=== PATIENT | female | born 1990 | race American Indian/Alaskan Native ===

== ENCOUNTER 2017-03-03 16:31 | Emergency (ER) | payer OTHER ==
[2017-03-03 16:54] VITALS: O2SAT 99
[2017-03-03] MEDS ORDERED: Sodium Chloride 0.9% 1,000 ML IV ONE (17:33)
--- NOTE | 2017-03-03 17:40 | C.PDOC ---
History Of Present Illness 26 y/o female, with PMHx of morbid obesity, presents to ED for evaluation of crampy abdominal pain for the last 2 weeks. Pt states that she was seen at another institution, and was told she was constipated. Notes that she was given Laxatives which caused her symptoms to worsen. Otherwise, pt denies any n/v/d, fever, or any other complaints at this time. Time Seen by Provider: 03/03/17 17:23 Chief Complaint (Nursing): Abdominal Pain History Per: Patient History/Exam Limitations: no limitations Onset/Duration Of Symptoms: Days (2 weeks) Current Symptoms Are (Timing): Still Present Location Of Pain/Discomfort: Diffuse Radiation Of Pain To:: None Quality Of Discomfort: Cramping Associated Symptoms: Constipation. denies: Nausea, Vomiting, Loss Of Appetite, Back Pain, Chest Pain, Urinary Symptoms Exacerbating Factors: None Alleviating Factors: None Recent travel outside of the [place]: No Additional History Per: Patient Abnormal Vaginal Bleeding: No Past Medical History Reviewed: Historical Data, Nursing Documentation, Vital Signs Vital Signs: Last Vital Signs Temp 99.0 F 03/03/17 21:44 Pulse 82 03/03/17 23:01 Resp 18 03/03/17 23:01 BP 105/71 03/03/17 21:44 Pulse Ox 99 03/03/17 23:01 - Medical History PMH: No Chronic Diseases Surgical History: No Surg Hx Family History: States: No Known Family Hx - Social History Hx Alcohol Use: No Hx Substance Use: No - Immunization History Hx Tetanus Toxoid Vaccination: No Hx Influenza Vaccination: No Hx Pneumococcal Vaccination: No Review Of Systems Except As Marked, All Systems Reviewed And Found Negative. Constitutional: Negative for: Fever, Chills Cardiovascular: Negative for: Chest Pain, Palpitations Respiratory: Negative for: Cough, Shortness of Breath Gastrointestinal: Positive for: Abdominal Pain, Constipation. Negative for: Nausea, Vomiting, Diarrhea Genitourinary: Negative for: Dysuria, Frequency, Hematuria, Vaginal Discharge Musculoskeletal: Negative for: Back Pain Neurological: Negative for: Headache, Dizziness Physical Exam - Physical Exam Appears: Non-toxic, No Acute Distress Skin: Normal Color, Warm, Dry Head: Atraumatic, Normacephalic Eye(s): bilateral: Normal Inspection, EOMI Oral Mucosa: Moist Neck: Normal ROM, Supple Chest: Symmetrical Cardiovascular: Rhythm Regular, No Murmur Respiratory: No Accessory Muscle Use, No Rales, No Rhonchi, No Wheezing Gastrointestinal/Abdominal: Soft, Tenderness (llq), No Distention, No Guarding, No Rebound Back: No CVA Tenderness Extremity: Normal ROM, No Deformity Extremity: Bilateral: Atraumatic Neurological/Psych: Oriented x3, Normal Speech ED Course And Treatment - Laboratory Results Result Diagrams: 03/03/17 18:25 03/03/17 18:25 O2 Sat by Pulse Oximetry: 99 (on RA) Pulse Ox Interpretation: Normal Medical Decision Making Medical Decision Making: r/o colitis, uti, diverticultis, ovarian cyst - labs imagign pending 1000: pt reassesed: ct shows : MPRESSION: - Findings suspicious for marked acute diverticulitis of the sigmoid colon. There is no evidence of free air or abscess formation, however, there is a significant soft tissue component to the infection, suspicious for phlegmonous infection. - Mild thickening of the bladder wall on the left, most likely reactive, related to the nearby sigmoid diverticulitis, but recommend correlation with urinalysis results to rule out acute cystitis. - See above for remaining findings. discussed results in detail with pt. requeted pt be observed in hospital however pt refuses. states she needs to take care of her daughter. pt does state pain and symptoms are improved. advise outpt f/u and return precautions. Disposition - Disposition Referrals: Eamon Andrews MD [Staff Provider] - Disposition: HOME/ ROUTINE Disposition Time: 22:03 Condition: STABLE Additional Instructions: please follow up with your doctor/specialist. return to er with worsening symptoms or concerns. you are declining observation in the hospital, however you are able to return to er at any time with any concerns Prescriptions: Cefpodoxime [Vantin] 100 mg PO BID #20 tab metroNIDAZOLE [Flagyl] 500 mg PO TID #30 tab Instructions: Diverticulitis (ED) Forms: [facility] (Portuguese), Work Excuse - Clinical Impression Clinical Impression: Diverticulitis - Scribe Statement The provider has reviewed the documentation as recorded by the Raffiibe Pardeep Lozoya All medical record entries made by the Scribe were at my direction and personally dictated by me. I have reviewed the chart and agree that the record accurately reflects my personal performance of the history, physical exam, medical decision making, and the department course for this patient. I have also personally directed, reviewed, and agree with the discharge instructions and disposition.
[2017-03-03] MEDS ORDERED: Sodium Chloride 0.9% 1,000 ML ONE (17:56)
[2017-03-03 18:39] LABS: BASO # 0.1 K/uL (0.0-0.2); BASO % 0.5 % (0.0-2.0); EOS # 0.1 K/uL (0.0-0.7); EOS % 0.4 % (0.0-4.0); LYMPH # 2.3 K/uL (1.0-4.3); LYMPH % 14.8 % (20.0-40.0); MEAN CELL VOLUME 79.5 fL (81.0-99.0); MEAN CORPUSCULAR HEMOGLOBIN 25.7 pg (27.0-31.0); MEAN CORPUSCULAR HGB CONC 32.3 g/dL (33.0-37.0); MONO # 1.5 K/uL (0.0-0.8); MONO % 9.4 % (0.0-10.0); RED CELL DISTRIBUTION WIDTH 15.8 % (11.5-14.5); WHITE BLOOD COUNT 15.9 K/uL (4.8-10.8)
[2017-03-03 18:46] LABS: CHLORIDE 106 mmol/L (98-107); SODIUM 138 mmol/L (132-148)
[2017-03-03 18:47] LABS: POTASSIUM 3.7 mmol/L (3.6-5.2)
[2017-03-03 18:48] LABS: GFR AFRICAN-AMERICAN > 60
[2017-03-03 18:49] LABS: ALB/GLOB RATIO 1.1 (1.0-2.1); ALKALINE PHOSPHATASE 174 U/L (38-126); ALT/SGPT 23 U/L (9-52); AST/SGOT 20 U/L (14-36); BILIRUBIN,TOTAL 0.5 mg/dL (0.2-1.3); BLOOD UREA NITROGEN 10 mg/dL (7-17); CALCIUM 9.1 mg/dl (8.6-10.4); CARBON DIOXIDE 23 mmol/L (22-30); GLUCOSE,RANDOM 94 mg/dL (65-105)
[2017-03-03 18:52] LABS: RBC URINE 177 /hpf (0-3); URINE BACTERIA FEW (<OCC); URINE BILIRUBIN NEGATIVE (NEGATIVE); URINE BLOOD 3+ (NEGATIVE); URINE GLUCOSE (UA) NORMAL (Normal); URINE KETONE 1+ mg/dL (NEGATIVE); URINE LEUKOCYTE ESTERASE 1+ Leu/uL (Negative); URINE PROTEIN 1+ mg/dL (NEGATIVE); URINE UROBILINOGEN NORMAL mg/dL (0.2-1.0); WBC URINE 29 /hpf (0-5)
[2017-03-03 18:53] LABS: URINE COLOR YELLOW (YELLOW)
[2017-03-03 18:57] LABS: INR 1.5
[2017-03-03] MEDS ORDERED: Iodixanol 320 MG/ML 100 ML BOTTLE IV ONE (19:28)
[2017-03-03] MEDS ORDERED: cefTRIAXone IV 1 gm in Dextros 50 ML IVPB ONE (19:28)
--- NOTE | 2017-03-03 20:21 | US ---
EXAM: US Pelvis, Transvaginal EXAM DATE/TIME: 03/03/2017 5:33 PM CLINICAL HISTORY: 26 years old, female; Pain; Pelvic pain; Additional info: Left adenxal pain TECHNIQUE: Real-time transvaginal pelvic ultrasound (complete) with image documentation. Transvaginal imaging was used for better evaluation of the endometrium and adnexa. COMPARISON: No relevant prior studies available. FINDINGS: Uterus: Within normal limits in appearance. Measures 8 x 3.9 x 4.7 cm. Endometrial stripe does not appear abnormally thickened, measuring 7 mm. No fibroids seen. Cervix appears closed. Right ovary: Somewhat poorly seen due to gas. Grossly normal in appearance. Measures 2.6 x 2.0 x 2.0 cm. Flow seen in the right ovary on color and Doppler imaging, with no evidence of torsion. Left ovary: Within normal limits in appearance, containing multiple small follicles. Measures 3.3 x 1.7 x 2.9 cm. Flow seen in the left ovary on color and Doppler imaging, with no evidence of torsion. Free fluid: A small amount of free fluid is seen in the cul-de-sac, and in the right adnexal region, abutting the right ovary. IMPRESSION: Small amount of free fluid in the cul-de-sac and abutting the right ovary. This may be physiologic in nature. Otherwise negative exam. No evidence of ovarian torsion or masses. See above for remaining findings.
[2017-03-03 21:45] VITALS: BP 105/71; RESP 18; TEMP 99
--- NOTE | 2017-03-03 21:57 | CT ---
EXAM: CT Abdomen and Pelvis With Intravenous Contrast EXAM DATE/TIME: 03/03/2017 7:18 PM CLINICAL HISTORY: 26 years old, female; Pain; Abdominal pain; Localized; Left lower quadrant (llq); Additional info: Llq pain TECHNIQUE: Axial computed tomography images of the abdomen and pelvis with intravenous contrast. All CT scans at this facility use one or more dose reduction techniques, viz.: automated exposure control; ma/kV adjustment per patient size (including targeted exams where dose is matched to indication; i.e. head); or iterative reconstruction technique. Coronal and sagittal reformatted images were created and reviewed. CONTRAST: 100 mL of visipaque 320 administered intravenously. COMPARISON: Recent pelvic ultrasound. FINDINGS: LIMITATIONS: Artifact related to the patient's body habitus. LOWER THORAX: No infiltrate seen in the lung bases. ABDOMEN: LIVER: No acute abnormality of the liver identified. GALLBLADDER AND BILE DUCTS: No CT evidence of acute cholecystitis. No evidence of significant biliary ductal dilatation. PANCREAS: No CT evidence of acute pancreatitis. SPLEEN: No acute abnormality of the spleen identified. ADRENALS: No acute abnormality of the adrenal glands identified. KIDNEYS AND URETERS: No acute abnormality of the kidneys identified. No evidence of significant hydrouereteronephrosis. STOMACH AND BOWEL: Findings highly suspicious for acute diverticulitis of the proximal sigmoid colon. There is marked infiltration of the fat abutting the proximal sigmoid colon, suspicious for severe perisigmoid inflammation. Segmental wall thickening of the colon and is also seen at this location, and there is abnormal fluid and thickening involving the nearby left retroperitoneal fat. Sigmoid diverticula are noted. There is no evidence of free air/perforation or of a walled off fluid collection containing gas to suggest a curtis abscess, however, the inflammation has a significant soft tissue component, suspicious for phlegmonous inflammation. Remainder of the colon is fluid-filled, a finding which can be seen in the setting of diarrhea. Otherwise, no significant abnormality of the bowel is identified. No evidence of small bowel obstruction. APPENDIX: Normal appendix is not seen, however, there are no significant inflammatory changes visualized in the expected location of the appendix to suggest appendicitis. Recommend clinical correlation. PELVIS: BLADDER: Mild wall thickening of the bladder on the left is seen. Most likely, this is reactive in etiology, secondary to the sigmoid diverticulitis, but recommend correlation with urinalysis results. No evidence of diffuse bladder wall thickening. REPRODUCTIVE:No acute abnormality of the reproductive organs is seen. No acute abnormality of the uterus identified. No evidence of large adnexal masses. ABDOMEN and PELVIS: INTRAPERITONEAL SPACE: Small amount of free fluid in the cul-de-sac. No evidence of free intraperitoneal air. BONES/JOINTS: No acute fractures or other acute bony abnormality noted. SOFT TISSUES: No acute abnormality of the visualized soft tissues is seen. VASCULATURE: No evidence of abdominal aortic aneurysm. No evidence of periaortic hemorrhage. LYMPH NODES: Multiple small retroperitoneal and bilateral inguinal lymph nodes seen, none appearing pathologically enlarged. This is a nonspecific finding. No evidence of diffuse pathologic lymphadenopathy. IMPRESSION: - Findings suspicious for marked acute diverticulitis of the sigmoid colon. There is no evidence of free air or abscess formation, however, there is a significant soft tissue component to the infection, suspicious for phlegmonous infection. - Mild thickening of the bladder wall on the left, most likely reactive, related to the nearby sigmoid diverticulitis, but recommend correlation with urinalysis results to rule out acute cystitis. - See above for remaining findings.
[2017-03-03] MEDS ORDERED: metroNIDAZOLE IV 500 mg/100 ml 500 MG/100 ML BAG IVPB STA (21:58)
[2017-03-03] MEDS ORDERED: metroNIDAZOLE IV 500 mg/100 ml 500 MG/100 ML BAG ONE (22:10)
[2017-03-03 23:02] VITALS: PULSE 82
== END 2017-03-03 23:02 | disposition home or self-care (01) ==
LOC: C.ER 16:31
DX: K57.32 Diverticulitis of large intestine without perforation or abscess without bleeding (principal)
CPT/HCPCS: 74177; 76830; 76856; 80053; 81001; 83690; 84703; 85025; 85610; 85730; 96361; 96365; 96367; 96375; 99285; J0696; J1885; J7040; Q9967